=== PATIENT | male | born 1955 | race Caucasian/White ===

== ENCOUNTER 2018-01-28 23:29 | Emergency (ER) | payer OTHER, SELFPAY ==
[2018-01-28 23:39] VITALS: BP 154/98; PULSE 84; RESP 16; TEMP 37.1; O2SAT 96; BMI 25.8
--- NOTE | 2018-01-29 00:18 | HMH.EDGENADL ---
ED Disposition Clinical Impression: Hypertensive urgency Disposition: Home, Self-Care Condition on Discharge: Good Instructions: High Blood Pressure (Hypertension) (Alternative Therapy) Additional Instructions: low salt diet and see pcp for follow up Prescriptions: Lisinopril [Lisinopril 10mg Tab] 10 mg PO DAILY #15 tab - Critical Care Critical Care Time: No Attestation: On 01/28/18, the high probability of a clinically significant, sudden or life threatening deterioration of the following system(s) required my full and direct attention, intervention and personal management. The time I documented below is in addition to time spent performing reported procedures but includes the following listed in this critical care notation. Medical Decision Making - Medical Records Medical records reviewed: Yes: I reviewed the patient's medical records. Vital Signs: 01/28/18 23:39 Temperature 98.7 F Temperature Source Oral Pulse Rate [Right Brachial] 84 Respiratory Rate 16 Blood Pressure [Right Arm] 154/98 Blood Pressure Mean [Right Arm] 116 Blood Pressure Source [Right Arm] Automatic Cuff Blood Pressure Position [Right Arm] Sitting 02 Sat by Pulse Oximetry 96 Oxygen Delivery Method Room Air - Lab Data Lab results reviewed: Yes: I reviewed the patient's lab results. Orders (Tests/Meds): ED MEDICATIONS Generic Name Dose Route Start Last Admin Trade Name Freq PRN Reason Stop Dose Admin Lisinopril 5 mg 01/29/18 09:00 01/29/18 00:26 Zestril 5mg Tablet PO 02/28/18 08:59 5 mg DAILY DOROTHY Administration ORDERS Category Date Time Status BMP [Basic Metabolic Panel] Stat Lab 01/29/18 00:17 Ordered CBC [Complete Blood Count Auto Diff] Stat Lab 01/29/18 00:17 Ordered - German Inquiry Pt receiving controlled substance: No General Adult HPI - General Chief complaint: Recheck/Abnormal Lab/Rx Stated complaint: HBP,Ringing in Ears Time Seen by Provider: 01/29/18 00:18 Mode of Arrival: Ambulatory Source of Information: Patient, Relative, Medical Record Limitations: No Limitations Description of Symptoms (Recalled from ER Triage Doc. by RN): REPORTS RINGING IN EAR TOOK HIS BP, IT WAS HIGH SO PT CAME TO GET CHECKED OUT. REPORTS SEEING HIS FAMILY DOC 1 MONTH AGO - History of Present Illness HPI narrative: pt with elevated bp and some ringing in ear with no chest pain or neuro sx - no known htn Onset (ago): day(s) Severity: moderate - Related Data Previous Rx's Medication Instructions Recorded Lisinopril [Lisinopril 10mg Tab] 10 mg PO DAILY #15 tab 01/29/18 Allergies Allergy/AdvReac Type Severity Reaction Status Date / Time No Known Allergies Allergy Verified 01/28/18 23:44 [facility] History I have reviewed the patient's past medical history: Yes Medical History: Denies:: Cancer, Diabetes Mellitus Type 1, MRSA Amputation: No Fractures: No - Social History Educational Level: Completed High School Smoking Status: Current every day smoker Tobacco Type: cigarettes Alcohol Intake: never Substance Use Type: marijuana Last Used Substance: days (ago) - Psychiatric History Expresses thoughts of harming self/others: None Suicide Plan Description: No Plan ROS Obtained: Yes All systems reviewed & no additional complaints - Constitutional Constitutional: Denies fever(s) - Eyes Eyes: Denies change in vision - ENT Ears, Nose, Mouth, and Throat: Denies sore throat, Reports ringing in the ears - Cardiovascular Cardiovascular: Denies chest pain, Denies chest pain at rest, Denies dyspnea - Respiratory Respiratory: No cough - Gastrointestinal Gastrointestingal: Denies: abdominal pain - Genitourinary Male Genitourinary: Denies decreased urination - Integumentary/Breasts Skin/Breast: Denies rash - Neurologic Neurologic: Denies confusion, Denies convulsions, Denies tingling/numbness/burning sensations Physical Exam - General General appearance: alert, in
[2018-01-29 00:55] VITALS: BP 142/89; PULSE 89; RESP 94; TEMP 36.3; O2SAT 100
[2018-01-29 01:13] LABS: Basophils % 0.4 % (0.1-2.0); Eosinophils # 0.1 K/mm3 (0.0-0.4); Eosinophils % 1.1 % (0.1-12.0); Hematocrit 52.4 % (42.0-52.0); Hemoglobin 17.8 g/dL (14.1-18.0); Lymphocytes # 2.3 K/mm3 (0.7-4.5); Lymphocytes % 26.8 K/mm3 (10-50); Mean Corpuscular Hemoglobin 29.6 pg (27.0-31.2); Monocytes # 0.5 K/mm3 (0.1-1.0); Monocytes % 5.8 % (1.7-9.3); Neutrophils # 5.8 K/mm3 (1.8-7.8); Neutrophils % 65.9 % (37.0-80.0); Platelet Count 194 K/mm3 (142-424); Red Blood Count 6.02 M/mm3 (4.60-6.20); Red Cell Distribution Width 13.1 % (11.5-17.5); White Blood Count 8.7 K/mm3 (4.8-10.8)
[2018-01-29 01:24] LABS: Anion Gap 13.6 mEq/L (5-15); Blood Urea Nitrogen 15 mg/dL (7-18); Carbon Dioxide 25 mmol/L (21.0-32.0); Chloride 101 mmol/L (98-107); Creatinine Clearance Estimated 80 mL/min (0-300); Creatinine,Serum 0.85 mg/dL (0.70-1.30); Estimated Glomerular Filt Rate 91 ml/min (>60); GFR (African American) 110 ML/MIN (>60); Glucose 107 mg/dL (74-106); Potassium 3.6 mmoL/L (3.5-5.1); Sodium 136 mmol/L (136-145)
== END 2018-01-29 00:56 | disposition home or self-care (01) ==
PROVIDERS: Emergency Provider Emergency Medicine
DX: I16.0 Hypertensive urgency (principal); F17.210 Nicotine dependence, cigarettes, uncomplicated; F12.10 Cannabis abuse, uncomplicated
CPT/HCPCS: 80048; 85025; 99282

== ENCOUNTER 2023-07-08 09:04 | Day surgery (SDC) | payer MEDICARE, MEDICAID, SELFPAY ==
[2023-07-08] VITALS (8 sets, daily range): BP systolic 131–167; BP diastolic 80–91; PULSE 56–73; RESP 16–18; TEMP 36.1–36.6; O2SAT 97–100
--- NOTE | 2023-07-08 10:49 | SUR.PREOP ---
Unable to scan eye drops. Pharmacy and Kristin Perry RN notified.
== END 2023-07-08 12:22 | disposition home or self-care (01) ==
PROVIDERS: PCP Family Medicine; Visit Provider Ophthalmology
DX: H25.811 Combined forms of age-related cataract, right eye (principal)
CPT/HCPCS: 66982; V2632

== ENCOUNTER 2023-07-22 08:41 | Day surgery (SDC) | payer MEDICARE, MEDICAID, SELFPAY ==
[2023-07-16 10:41] VITALS: BMI 24.3
[2023-07-22 10:49] VITALS: BP 151/84; PULSE 65; RESP 18; TEMP 36.2; O2SAT 97
[2023-07-22 12:10] VITALS: BP 118/76; PULSE 63; RESP 16; O2SAT 100
[2023-07-22 12:15] VITALS: BP 137/81; PULSE 63; RESP 16; O2SAT 100
[2023-07-22 12:20] VITALS: BP 127/75; PULSE 69; RESP 16; O2SAT 100
[2023-07-22 12:25] VITALS: BP 132/72; PULSE 63; RESP 17; O2SAT 100
[2023-07-22 12:33] VITALS: BP 146/75; PULSE 66; RESP 17; TEMP 36.6; O2SAT 98
== END 2023-07-22 12:36 | disposition home or self-care (01) ==
PROVIDERS: PCP Family Medicine; Visit Provider Ophthalmology
DX: H25.812 Combined forms of age-related cataract, left eye (principal)
CPT/HCPCS: 66984; V2632

== ENCOUNTER 2024-04-22 16:24 | Emergency (ER) | payer MEDICARE, MEDICAID, SELFPAY ==
[2024-04-22 16:26] VITALS: BP 160/81; PULSE 80; RESP 18; TEMP 36.8; O2SAT 98; BMI 23.5
--- NOTE | 2024-04-22 16:32 | ED_ITS ---
<Statement entered by Marky Jim MD - 04/22/24 23:02> I was consulted by the DENISHA, and we discussed the complexity of the problems being addressed. I approved the treatment and management plan for this patient's care in the emergency department, thus performing a substantive portion of the medical decision making. Marky Jim MD, SHAQUILLE, FACEP Discharge Plan Disposition Patient Disposition: Home, Self-Care Condition: Good Chief Complaint: Anxiety Prescriptions Prescriptions: No Action No Known Home Medications Referrals Follow up/Referrals: Provider,MD Matty [Primary Care Provider] - See instructions Maryuri Riley APRN [Nurse Practitioner] - See instructions Activity Restrictions/Add. Instructions Additional Instructions/Restrictions: Please establish care with a PCP for routine health care. I have referred you to behavioral health and you need to call tomorrow to make an appointment. Return to the emergency department for any worsening signs or symptoms as needed. Clinical Impressions Clinical Impression: KARLA (generalized anxiety disorder) Discharge ED Provider: Marky Jim General Adult HPI <JUSTYNA Rojas - Last Filed: 04/22/24 17:49> General Chief complaint: Anxiety Stated complaint: anxiety Time Seen by Provider: 04/22/24 16:32 History of Present Illness HPI narrative: Patient presents for anxiety evaluation. Patient presents with his daughter in attendance for chief complaint of generalized anxiety. Patient states over the last 3 or 4 years he has had problems with anxiety. He describes it as fixating and perseveration of thought and then feeling anxious . Patient denies chest pain with any of the symptoms. He says they do not last very long but he will sometimes have it multiple times a day over several days. Patient does not currently have a PCP and has not seen one in over 3 years. Patient is a smoker and not currently drinking any alcohol. Patient states the only thing that has helped that is a medical grade THC/CBD medication called calm . Patient however currently denies chest pain shortness of breath fever chills hemoptysis hematochezia melena nausea vomiting diarrhea suicidal or homicidal ideations. Related Data Home Medications Medication Instructions Recorded Confirmed No Known Home Medications 07/07/23 07/22/23 Allergies Allergy/AdvReac Type Severity Reaction Status Date / Time No Known Allergies Allergy Verified 07/22/23 10:49 PFSH <JUSTYNA Rojas - Last Filed: 04/22/24 17:49> [facility] Disclaimer: The information contained in this section may have been updated after the patient was seen, as this information can be updated by other users. Medical History (Updated 04/22/24 @ 17:49 by JUSTYNA Rojas) History of gastroesophageal reflux (GERD) History of cataract No significant past medical history Surgical History (Updated 07/22/23 @ 10:59 by Miriam Cat, RN) History of cataract surgery S/P nasal surgery History of colonoscopy Family History Other No significant family history Social History (Updated 07/22/23 @ 10:59 by Miriam Cat RN) Smoking Status: Current every day smoker tobacco type: cigarettes packs per day: 1 alcohol intake: never substance use type: denies use current occupational status: retired Travel in the last 8 weeks: None household members: none housing: house lives independently: Yes marital status: single education level: high school service: No care home: No caffeine: No special gerardo needs: No agree to transfusion: No do you feel safe at home: Yes victim of physical abuse: No victim of emotional abuse: No victim of sexual abuse: No would you like helpful sources: No <JUSTYNA Rojas - Last Filed: 04/22/24 17:49> ROS Obtained: Yes Systems reviewed as appropriate & no additional complaints except as documented Physical Exam <JUSTYNA Rojas - Last Filed: 04/22/24 17:49> General General appearance: alert and in no apparent distress Head Head exam: atraumatic and normal inspection Eye Eye exam: Present normal appearance, PERRL and EOMI ENT ENT exam: Present normal exam, normal oropharynx and mucous membranes moist Neck Neck exam: Present normal inspection Chest Chest inspection: Present normal inspection and symmetric chest wall rise Respiratory Respiratory exam: Present normal lung sounds bilaterally Cardiovascular Cardiovascular exam: Present regular rate and normal rhythm Neurological Exam Neurological exam: Present alert and oriented X3 Medical Decision Making <JUSTYNA Rojas - Last Filed: 04/22/24 17:49> Medical Records Medical records reviewed: Yes I reviewed the patient's medical records. German Inquiry Pt receiving controlled substance: No Vital Signs: 04/22/24 16:26 04/22/24 17:01 Temperature 98.2 F Temperature Source Oral Pulse Rate 83 Pulse Rate [Apical] 80 Respiratory Rate 18 12 Blood Pressure 133/92 H Blood Pressure [Right Arm] 160/81 H Blood Pressure Mean 105 Blood Pressure Mean [Right Arm] 107 Blood Pressure Source [Right Arm] Automatic Cuff Blood Pressure Position [Right Arm] Sitting 02 Sat by Pulse Oximetry 98 97 Oxygen Delivery Method Room Air Lab Data Lab results reviewed: Yes I reviewed the patient's lab results. Lab Results 04/22/24 17:08: WBC 8.2, RBC 5.57, Hgb 16.6, Hct 51.2, MCV 91.8, MCH 29.7, MCHC 32.4, RDW 14.2, Plt Count 211, MPV 8.3, Neut % (Auto) 66.1, Lymph % (Auto) 26.3, [place] % (Auto) 5.0, Eos % (Auto) 1.4, Baso % (Auto) 1.2, Neut # (Auto) 5.4, Lymph # (Auto) 2.2, [place] # (Auto) 0.4, Eos # (Auto) 0.1, Baso # (Auto) 0.1, Sodium 141, Potassium 4.5, Chloride 104, Carbon Dioxide 29, Anion Gap 12.5, BUN 10, Creatinine 0.80, Estimated Creat Clear 67, Estimated GFR 96, Est GFR ( Amer) 116, Glucose 105 H, Calcium 9.6, Magnesium 2.3, Total Bilirubin 0.7, AST 24, ALT 21, Alkaline Phosphatase 78, Troponin I < 0.01, Total Protein 7.3, Albumin 4.5, Globulin 2.8, Albumin/Globulin Ratio 1.6 04/22/24 17:09: Urine Color Yellow, Urine Appearance Clear, Urine pH 6.5, Ur Specific Centre <= 1.005, Urine Protein Negative, Urine Glucose (UA) Negative, Urine Ketones Negative, Urine Blood Negative, Urine Nitrate Negative, Urine Bilirubin Negative, Urine Urobilinogen 0.2, Ur Leukocyte Esterase Negative, Urine RBC None, Urine WBC Occasional, Ur Squamous Epith Cells Occasional, Urine Bacteria Trace 04/22/24 17:08 04/22/24 17:08 Orders (Tests/Meds): ORDERS Category Date Time Status Chest XR -- portable [XR chest portable] Stat Exams 04/22/24 16:47 Taken CBC w/Auto Diff [Complete Blood Count Auto Diff] Stat Lab 04/22/24 17:08 Completed CMP [Comprehensive Metabolic Panel] Stat Lab 04/22/24 17:08 Results Magnesium Stat Lab 04/22/24 17:08 Results TSH [Thyroid Stimulating Hormone] Stat Lab 04/22/24 17:08 Results Trop I [Troponin I] Stat Lab 04/22/24 17:08 Results Troponin I Q3H Lab 04/22/24 20:00 Ordered Troponin I Q3H Lab 04/22/24 23:00 Ordered UA [Urinalysis and Microscopic] Stat Lab 04/22/24 17:09 Completed Medical Decision Narrative: In summary patient is a 68-year-old male who presents to the emergency department for evaluation of generalized anxiety but asymptomatic currently. Patient is hemodynamically stable upon arrival, afebrile. Physical exam is unremarkable and nonfocal including heart rate that is normal sinus rhythm on the bedside monitor. Differential diagnosis includes generalized anxiety disorder, electrolyte imbalance, hyperthyroidism, arrhythmia etc. Initial workup will be conducted with hematologic labs twelve-lead EKG urinalysis. Initial interventions will include anxiolytics should the patient become symptomatic while in the ER. Initial workup reviewed by me shows that his hematologic labs are nonactionable including an undetectable troponin and a normal TSH normal twelve-lead EKG. Upon repeat evaluation patient has no anxiety currently. Given this patient will be referred to behavioral health as an outpatient for further diagnostics/treatment of his anxiety. P <J Shahid Jim MD - Last Filed: 04/22/24 17:38> Vital Signs: 04/22/24 16:26 04/22/24 17:01 Temperature 98.2 F Temperature Source Oral Pulse Rate 83 Pulse Rate [Apical] 80 Respiratory Rate 18 12 Blood Pressure 133/92 H Blood Pressure [Right Arm] 160/81 H Blood Pressure Mean 105 Blood Pressure Mean [Right Arm] 107 Blood Pressure Source [Right Arm] Automatic Cuff Blood Pressure Position [Right Arm] Sitting 02 Sat by Pulse Oximetry 98 97 Oxygen Delivery Method Room Air Lab Data Lab Results 04/22/24 17:08: WBC 8.2, RBC 5.57, Hgb 16.6, Hct 51.2, MCV 91.8, MCH 29.7, MCHC 32.4, RDW 14.2, Plt Count 211, MPV 8.3, Neut % (Auto) 66.1, Lymph % (Auto) 26.3, [place] % (Auto) 5.0, Eos % (Auto) 1.4, Baso % (Auto) 1.2, Neut # (Auto) 5.4, Lymph # (Auto) 2.2, [place] # (Auto) 0.4, Eos # (Auto) 0.1, Baso # (Auto) 0.1, Sodium 141, Potassium 4.5, Chloride 104, Carbon Dioxide 29, Anion Gap 12.5, BUN 10, Creatinine 0.80, Estimated Creat Clear 67, Estimated GFR 96, Est GFR ( Amer) 116, Glucose 105 H, Calcium 9.6, Magnesium 2.3, Total Bilirubin 0.7, AST 24, ALT 21, Alkaline Phosphatase 78, Troponin I < 0.01, Total Protein 7.3, Albumin 4.5, Globulin 2.8, Albumin/Globulin Ratio 1.6 04/22/24 17:09: Urine Color Yellow, Urine Appearance Clear, Urine pH 6.5, Ur Specific Centre <= 1.005, Urine Protein Negative, Urine Glucose (UA) Negative, Urine Ketones Negative, Urine Blood Negative, Urine Nitrate Negative, Urine Bilirubin Negative, Urine Urobilinogen 0.2, Ur Leukocyte Esterase Negative, Urine RBC None, Urine WBC Occasional, Ur Squamous Epith Cells Occasional, Urine Bacteria Trace Orders (Tests/Meds): ORDERS Category Date Time Status Chest XR -- portable [XR chest portable] Stat Exams 04/22/24 16:47 Taken CBC w/Auto Diff [Complete Blood Count Auto Diff] Stat Lab 04/22/24 17:08 Completed CMP [Comprehensive Metabolic Panel] Stat Lab 04/22/24 17:08 Results Magnesium Stat Lab 04/22/24 17:08 Results TSH [Thyroid Stimulating Hormone] Stat Lab 04/22/24 17:08 Results Trop I [Troponin I] Stat Lab 04/22/24 17:08 Results Troponin I Q3H Lab 04/22/24 20:00 Ordered Troponin I Q3H Lab 04/22/24 23:00 Ordered UA [Urinalysis and Microscopic] Stat Lab 04/22/24 17:09 Completed ECG Data Tracing #1: I reviewed this ECG and interpreted as documented below: Ventricular rate of 74 normal sinus rhythm no acute ischemic changes noted normal axis no significant conduction abnormality Critical Care <JUSTYNA Rojas - Last Filed: 04/22/24 17:49> Critical Care Time Critical Care Time: No
--- NOTE | 2024-04-22 16:33 | ECG_ITS ---
APPROVED REPORT Exam: Resting ECG HR:74 bpm ECG Measurements Heart Rate 74 AXES IA 133 P 68 QRSd 94 QRS 75 QT 377 T 68 QTc 404 Conclusion SINUS RHYTHM NORMAL ECG UNCONFIRMED REPORT Electronically signed by : Lazaro Jim, 04/22/2024 23:05:29
--- NOTE | 2024-04-22 16:39 | PC.NURSE ---
Jhony GATES at BS for pt eval
--- NOTE | 2024-04-22 16:47 | XR_ITS ---
PROCEDURE INFORMATION: Exam: XR Chest Exam date and time: 04/22/2024 4:53 PM Age: 68 years old Clinical indication: Other: Anxiety, palpitations TECHNIQUE: Imaging protocol: Radiologic exam of the chest. Views: 1 view. Total images: 1 COMPARISON: No relevant prior studies available. FINDINGS: Lungs: Bilateral hyperinflation is present. No focal pneumonia. Atelectatic changes noted within both lung bases. Pleural spaces: No evidence of pneumothorax or pleural effusion. Heart/Mediastinum: Unremarkable. No cardiomegaly. Bones/joints: Unremarkable. IMPRESSION: 1. Bilateral hyperinflation is present. 2. No focal pneumonia. 3. Atelectatic changes noted within both lung bases.
--- NOTE | 2024-04-22 16:58 | PC.NURSE ---
XR AT BEDSIDE
[2024-04-22 17:01] VITALS: BP 133/92; PULSE 83; RESP 12; O2SAT 97
[2024-04-22 17:15] LABS: Microscopic, Urine URINE MICROSCOPIC (MICROSCOPIC)
[2024-04-22 17:16] LABS: Basophils # 0.1 K/mm3 (0-0.2); Basophils % 1.2 % (0.1-2.0); Eosinophils # 0.1 K/mm3 (0.0-0.4); Eosinophils % 1.4 % (0.1-12.0); Hematocrit 51.2 % (42.0-52.0); Hemoglobin 16.6 g/dL (14.1-18.0); Lymphocytes # 2.2 K/mm3 (0.7-4.5); Lymphocytes % 26.3 % (10-50); Mean Corpuscular HGB Conc 32.4 g/dL (31.8-35.4); Mean Corpuscular Hemoglobin 29.7 pg (27.0-31.2); Mean Corpuscular Volume 91.8 fl (80-94); Mean Platelet Volume 8.3 fl (7.4-10.4); Monocytes # 0.4 K/mm3 (0.1-1.0); Neutrophils # 5.4 K/mm3 (1.8-7.8); Neutrophils % 66.1 % (37.0-80.0); Platelet Count 211 K/mm3 (142-424); Red Blood Count 5.57 M/mm3 (4.60-6.20); Red Cell Distribution Width 14.2 % (11.5-17.5); White Blood Count 8.2 K/mm3 (4.8-10.8)
[2024-04-22 17:19] LABS: Appearance,Urine CLEAR (Clear); Bilirubin,Urine Negative (Negative); Blood, Urine Negative (Negative); Color,Urine YELLOW (Yellow); Glucose,Urine (UA) Negative (Negative); Ketones,Urine Negative (Negative); Leukocyte Esterase,Urine Negative (Negative); Nitrate,Urine Negative (Negative); PH,Urine 6.5 (5.0-8.5); Protein,Urine Negative (Negative); Specific Gravity, Urine <= 1.005 (1.005-1.030); Urobilinogen,Urine 0.2 EU/dl (0.2)
[2024-04-22 17:21] LABS: Chloride 104 mmol/L (98-107); Potassium 4.5 mmoL/L (3.5-5.1); Sodium 141 mmol/L (136-145)
[2024-04-22 17:23] LABS: Alanine Aminotransferase 21 U/L (12-78); Aspartate Amino Transferase 24 U/L (17-59); Blood Urea Nitrogen 10 mg/dl (9-20); Creatinine Clearance Estimated 67 mL/min (50-200); Estimated Glomerular Filt Rate 96 ml/min (>60); GFR (African American) 116 ML/MIN (>60)
[2024-04-22 17:24] LABS: Albumin Level 4.5 g/dl (3.5-5.0); Albumin/Globulin Ratio 1.6 (1.1-1.8); Alkaline Phosphatase 78 U/L (38-126); Anion Gap 12.5 mEq/L (5-15); Bilirubin,Total 0.7 mg/dl (0.2-1.3); Calcium 9.6 mg/dl (8.4-10.2); Carbon Dioxide 29 mmol/L (22.0-30.0); Globulin 2.8 g/dL (1.3-3.2); Glucose 105 mg/dl (74-100); Magnesium 2.3 mg/dl (1.6-2.3); Total Protein,Serum 7.3 g/dl (6.3-8.2)
[2024-04-22 17:32] LABS: Bacteria,Urine Trace /lpf; Squamous Epithelial Cell,Urine Occasional #/hpf (0-5); WBC,Urine Occasional #/hpf (0-3)
[2024-04-22 17:38] LABS: Troponin I < 0.01 ng/ml (0.00-0.034)
[2024-04-22 17:58] VITALS: BP 138/91; PULSE 71; RESP 20; TEMP 36.7; O2SAT 95
== END 2024-04-22 17:59 | disposition home or self-care (01) ==
PROVIDERS: Physician Assistant; Emergency Provider Student in an Organized Health Care Education/Training Program
DX: F41.1 Generalized anxiety disorder (principal); F17.210 Nicotine dependence, cigarettes, uncomplicated
CPT/HCPCS: 71045; 80053; 81001; 83735; 84443; 84484; 85025; 93005; 99283; 99284

== ENCOUNTER 2025-06-11 18:08 | Emergency (ER) | payer MEDICARE, MEDICAID, SELFPAY ==
[2025-06-11] VITALS (7 sets, daily range): BP systolic 126–153; BP diastolic 83–90; PULSE 75–88; RESP 13–18; TEMP 36.7; O2SAT 93–94; BMI 25.0
--- NOTE | 2025-06-11 18:35 | ECG_ITS ---
APPROVED REPORT Exam: Resting ECG HR:81 bpm ECG Measurements Heart Rate 81 AXES MS 137 P 73 QRSd 91 QRS 80 QT 352 T 83 QTc 389 Conclusion Normal sinus rhythm without acute ST or T wave changes concerning for ischemia Electronically signed by : Estella Rodriguez, 06/12/2025 00:53:12
--- NOTE | 2025-06-11 18:42 | HMH.EDGENADL ---
Discharge Plan Disposition Patient Disposition: Home, Self-Care Prescriptions Prescriptions: No Action No Known Home Medications Referrals Follow up/Referrals: Provider,Referral, MD [Primary Care Provider, Medical] - See instructions Activity Restrictions/Add. Instructions Additional Instructions/Restrictions: Continue to stay well-hydrated. Return to the emergency department if you have any acute or worsening symptoms. Clinical Impressions Clinical Impression: Heat exhaustion Print Language Print Language: Tuvaluan Discharge ED Provider: Estella Rodriguez General Adult HPI General Chief complaint: Weakness Stated complaint: Dizziness Time Seen by Provider: 06/11/25 18:21 Mode of Arrival: EMS Source of Information: Patient and EMS Description of Symptoms (Recalled from ER Triage Doc. by RN): Patient presents to ED for episode of generalized weakness and becoming overheated after working outside all day. Patient then reports he was fixing supper and became faint and weak, also reported to EMS that he had an episode of inability to speak for a couple minutes which resolved. History of Present Illness HPI narrative: Patient is a 69-year-old male who presents to the emergency department with feeling generally weak while standing and cooking in the kitchen. Patient states that he was outside all day mowing the lawn and doing other outdoor work. Patient states that he felt sweaty and hot and notes lasted for about 20 minutes. Patient states that his symptoms then resolved. Patient never had any chest pain or shortness of breath. Patient never had any abdominal pain vomiting or diarrhea. Patient states that he did not drink much today while outside. Patient denies any cardiac symptoms in the past. Patient never had any syncopal episodes and patient did not have any falls or trauma. Related Data Home Medications ?Medication ?Instructions ?Recorded ?Confirmed No Known Home Medications 07/07/23 07/22/23 Allergies Allergy/AdvReac Type Severity Reaction Status Date / Time No Known Allergies Allergy Verified 07/22/23 10:49 [facility] Disclaimer: The information contained in this section may have been updated after the patient was seen, as this information can be updated by other users. Medical History (Updated 06/11/25 @ 21:36 by Estella Rodriguez DO) History of gastroesophageal reflux (GERD) History of cataract No significant past medical history Surgical History (Updated 07/22/23 @ 10:59 by Miriam Cat RN) History of cataract surgery S/P nasal surgery History of colonoscopy Family History Other No significant family history Social History (Updated 07/22/23 @ 10:59 by Miriam Cat RN) Smoking Status: Current every day smoker tobacco type: cigarettes packs per day: 1 alcohol intake: never substance use type: denies use current occupational status: retired Travel in the last 8 weeks?: None household members: none housing: house lives independently: Yes marital status: single education level: high school service: No half-way: No caffeine: No special gerardo needs: No agree to transfusion: No do you feel safe at home: Yes victim of physical abuse: No victim of emotional abuse: No victim of sexual abuse: No would you like helpful sources: No Have you lived/traveled outside [place] in past 30 days?: No Contact w/someone who lives/traveled outside [place] past 30 days?: No Exposure to someone with infectious disease in past 14 days?: No Do you have a fever (greater than 100.4 F or 38 C)?: No Have you tested positive for COVID-19?: No Exposed to someone with COVID-19 in past 14 days?: No Do you have a sore throat?: No Do you have a cough?: No Do you have any weakness?: No Do you have any diarrhea?: No Are you experiencing any unusual bleeding?: No Do you have any muscle aches/pain?: No Do you have any abdominal pain?: No Are you experiencing loss of taste or smell?: No Other Medical History Have you received the Flu Vaccine for this season: No Have you received the Pneumonia Vaccine: No ROS Obtained: Yes All systems reviewed & no additional complaints except as documented and Yes Systems reviewed as appropriate & no additional complaints except as documented Physical Exam General General appearance: alert and in no apparent distress Head Head exam: atraumatic, normocephalic and normal inspection Eye Eye exam: Present normal appearance, PERRL and EOMI; Absent scleral icterus ENT ENT exam: Present normal exam and normal external ear exam Neck Neck exam: Present normal inspection and full ROM Chest Chest inspection: Present normal inspection and symmetric chest wall rise Respiratory Respiratory exam: Present normal lung sounds bilaterally; Absent respiratory distress or wheezes Cardiovascular Cardiovascular exam: Present regular rate, normal rhythm and normal heart sounds Abdominal Exam Abdominal exam: Present soft and distention; Absent tenderness, guarding or rebound Extremities Exam Extremities exam: Present normal inspection and full ROM Back Exam Back exam: Present normal inspection and full ROM Neurological Exam Neurological exam: Present alert and oriented X3 Psychiatric Psychiatric exam: Present normal affect and normal mood Skin Skin exam: Present warm and dry Medical Decision Making Medical Records Screening: Per USPSTF and CDC recommendations, given the prevalence of disease in our region, it is our hospital?s policy to screen for HIV and viral Hepatitis for all patients aged 18 and over and those with ongoing risk factors. German Inquiry Pt receiving controlled substance: No Vital Signs: 06/11/25 18:15 06/11/25 18:15 06/11/25 19:00 Temperature 98.1 F 98.1 F Temperature Source Oral Pulse Rate 88 80 Pulse Rate [Right Radial] 88 Respiratory Rate 18 18 18 Blood Pressure 152/89 H 151/90 H Blood Pressure [Left Arm] 152/89 H Blood Pressure Mean 110 Blood Pressure Mean [Left Arm] 110 Blood Pressure Source [Left Arm] Automatic Cuff Blood Pressure Position [Left Arm] Sitting 02 Sat by Pulse Oximetry 93 L 93 L 94 L Oxygen Delivery Method Room Air Room Air 06/11/25 19:15 06/11/25 19:30 06/11/25 20:00 Temperature Temperature Source Pulse Rate 83 75 79 Pulse Rate [Right Radial] Respiratory Rate 16 13 16 Blood Pressure 153/90 H 143/83 H Blood Pressure [Left Arm] Blood Pressure Mean Blood Pressure Mean [Left Arm] Blood Pressure Source [Left Arm] Blood Pressure Position [Left Arm] 02 Sat by Pulse Oximetry 93 L 93 L 94 L Oxygen Delivery Method 06/11/25 20:15 Temperature Temperature Source Pulse Rate 78 Pulse Rate [Right Radial] Respiratory Rate 16 Blood Pressure Blood Pressure [Left Arm] Blood Pressure Mean Blood Pressure Mean [Left Arm] Blood Pressure Source [Left Arm] Blood Pressure Position [Left Arm] 02 Sat by Pulse Oximetry 94 L Oxygen Delivery Method Lab Data Lab results reviewed: Yes I reviewed the patient's lab results. Lab Results 06/11/25 18:14: WBC 11.7 H, RBC 6.02, Hgb 17.8, Hct 52.7 H, MCV 87.5, MCH 29.6, MCHC 33.8, RDW 13.5, Plt Count 215, MPV 10.3, Neut % (Auto) 72.1, Lymph % (Auto) 18.7, Storey % (Auto) 6.7, Eos % (Auto) 1.1, Baso % (Auto) 0.6, Neut # (Auto) 8.5 H, Lymph # (Auto) 2.2, Storey # (Auto) 0.8, Eos # (Auto) 0.1, Baso # (Auto) 0.1, Sodium 135 L, Potassium 4.2, Chloride 96 L, Carbon Dioxide 27, Anion Gap 16.2 H, BUN 17, Creatinine 1.10, Estimated Creat Clear 64, Estimated GFR 66, Est GFR ( Amer) 80, Glucose 123 H, Calcium 10.0, Total Bilirubin 0.9, AST 27, ALT 23, Alkaline Phosphatase 80, Total Creatine Kinase 99, CK-MB (CK-2) 1.9, Total Protein 8.2, Albumin 5.2 H, Globulin 3.0, Albumin/Globulin Ratio 1.7, HCV Ab CLAUDIA w/Rflx PCR Qn Negative, HIV Ag/Ab Combo Qual Negative 06/11/25 18:14 06/11/25 18:14 Orders (Tests/Meds): ED MEDICATIONS Discontinued Medications Generic Name Dose Route Start Last Admin Trade Name Freq PRN Reason Stop Dose Admin Sodium Chloride 1,000 mls @ 999 mls/hr 06/11/25 18:57 06/11/25 19:17 Sod Chlor 0.9% 1000ml Bag IV 06/11/25 19:57 999 mls/hr .Q1H1M ONE Administration ORDERS Category Date Time Status CBC w/Auto Diff [Complete Blood Count Auto Diff] Stat Lab 06/11/25 18:14 Completed CMP [Comprehensive Metabolic Panel] Stat Lab 06/11/25 18:14 Completed Creatine Kinase MB Stat Lab 06/11/25 18:14 Completed Creatine Kinase Stat Lab 06/11/25 18:14 Completed HIV Combo Stat Lab 06/11/25 18:14 Completed Hepatitis C Ab Qual. W/ RFX Stat Lab 06/11/25 18:14 Completed ECG Data Tracing #1: EKG with normal sinus rhythm at [address] or T wave changes concerning for ischemia. ECG initial impression date: 06/11/25 ECG initial impression time: 18:32 Normal Sinus Rhythm: Yes Medical Decision Narrative: Patient is a 69-year-old male with no significant past medical history who presented to the emergency department with an episode of feeling weak and diaphoretic while cooking in the kitchen. Patient states that he had come inside from being outside doing lawn care and other outdoor activities. On arrival to the emergency department, patient was hemodynamically stable with unremarkable vital signs. Patient's exam was otherwise unremarkable. Differential includes but not limited to: Dehydration, heat exhaustion, rhabdomyolysis, BEN, UTI, arrhythmia amongst others. Patient's labs were reviewed and interpreted by myself. CBC showed mild leukocytosis, hemoglobin was stable. Chemistry showed mild hyponatremia at 135 mild anion gap acidosis at 16.2, glucose was normal. Patient's UA showed no evidence of infection. Patient's EKG was reviewed and interpreted by myself and showed normal sinus rhythm without acute ST or T wave changes concerning for ischemia. Patient received a bolus of IV fluids patient's symptoms were improved. At this time I felt that patient was appropriate for discharge home. Patient was otherwise discharge in stable condition. Critical Care Critical Care Time Critical Care Time: No
[2025-06-11] MEDS: 0.9 % SODIUM CHLORIDE 1000ML 1,000 ML 999 ML IV (19:17)
[2025-06-11 19:25] LABS: Hematocrit 52.7 % (42.0-52.0); Hemoglobin 17.8 g/dL (14.1-18.0); Immature Granulocytes % 0.8 %; Mean Corpuscular HGB Conc 33.8 g/dL (31.8-35.4); Mean Corpuscular Hemoglobin 29.6 pg (27.0-31.2); Mean Corpuscular Volume 87.5 fl (80-94); Nucleated Red Blood Cells % 0 %; Platelet Count 215 K/mm3 (142-424); Red Blood Count 6.02 M/mm3 (4.60-6.20); Red Cell Distribution Width-SD 43.5 fL; White Blood Count 11.7 K/mm3 (4.8-10.8)
[2025-06-11 19:30] LABS: Albumin Level 5.2 g/dl (3.5-5.0); Chloride 96 mmol/L (98-107); Potassium 4.2 mmoL/L (3.5-5.1); Sodium 135 mmol/L (136-145)
[2025-06-11 19:33] LABS: Alanine Aminotransferase 23 U/L (12-78); Albumin/Globulin Ratio 1.7 (1.1-1.8); Alkaline Phosphatase 80 U/L (38-126); Anion Gap 16.2 mEq/L (5-15); Aspartate Amino Transferase 27 U/L (17-59); Bilirubin,Total 0.9 mg/dl (0.2-1.3); Blood Urea Nitrogen 17 mg/dl (9-20); Calcium 10.0 mg/dl (8.4-10.2); Carbon Dioxide 27 mmol/L (22.0-30.0); Creatine Kinase 99 U/L (55-170); Creatinine Clearance Estimated 64 mL/min (50-200); Creatinine,Serum 1.10 mg/dl (0.66-1.25); Estimated Glomerular Filt Rate 66 ml/min (>60); GFR (African American) 80 ML/MIN (>60); Globulin 3.0 g/dL (1.3-3.2); Glucose 123 mg/dl (74-100); Total Protein,Serum 8.2 g/dl (6.3-8.2)
[2025-06-11 19:44] LABS: Hepatitis C Ab Qual. W/ RFX NEGATIVE (Negative)
== END 2025-06-11 22:04 | disposition home or self-care (01) ==
PROVIDERS: Emergency Provider Student in an Organized Health Care Education/Training Program
DX: T67.5XXA Heat exhaustion, unspecified, initial encounter (principal); R53.1 Weakness
CPT/HCPCS: 80053; 82550; 82553; 85025; 86803; 87389; 93005; 96360; 99284; J7030